=== PATIENT | male | born 2000 | race Caucasian/White ===

== ENCOUNTER 2022-08-04 00:17 | Emergency (ER) | payer BC ==
[~2022-08-04] VITALS: Ht 172.7 cm; Wt 72.6 kg
[~2022-08-04 00:17] MED LIST: ZYRTEC10 M1 PO
[2022-08-04 00:27] VITALS: BP 143/78
[2022-08-04] MEDS ORDERED: AMOX-CLAV 875-1 EACH PO (00:56)
[2022-08-04] MEDS ORDERED: ONDANSETRON4 MG SL (00:59)
== END 2022-08-04 02:26 | disposition home or self-care (01) ==
LOC: ED 00:17
DX: S06.0X0A Concussion without loss of consciousness, initial encounter (principal); Y08.89XA Assault by other specified means, initial encounter; Y93.89 Activity, other specified; Y92.89 Other specified places as the place of occurrence of the external cause; Y99.8 Other external cause status